=== PATIENT | female | born 1980 | race Caucasian/White ===

== ENCOUNTER 2017-01-12 06:28 | Emergency (ER) | payer OTHER ==
[2017-01-12] MEDS ORDERED: MORPHINE SULFATE 5 MG/ML PFS IVP ONE (06:44)
[2017-01-12] MEDS ORDERED: ONDANSETRON HCL IV 4 MG/2 ML VIAL IVP ONE (06:44)
[2017-01-12] MEDS ORDERED: 0.9 % SODIUM CHLORIDE 1000ML 1,000 ML IV SCH (06:45)
--- NOTE | 2017-01-12 06:48 | Emergency Department Record ---
History of Present Illness - General Chief Complaint: Abdominal Pain Stated Complaint: STOMACH/BACK PAIN Time Seen by Provider: 01/12/17 06:33 Source: Patient Mode of Arrival: Ambulatory Limitations: No limitations - History of Present Illness Initial Comments: 36 yo female presents to ED for evaluation of left sided flank pain symptoms that are radiating to the left groin region. Patient reports that her pain symptoms began early this morning, improved, and then returned with more force. Patient denies nausea, vomiting, or change in stools. Patient denies a history of similar symptoms previously, denies health problems at her baseline, and denies previous abdominal surgeries. MD Complaint: Flank pain Onset/Timin -: Minutes(s) Radiation: None Migration to: LLQ Severity: Moderate Consistency: Constant Improves With: Nothing Worsens With: Nothing Associated Symptoms: Nausea - Related Data LMP (females 10-50): 3 weeks ago Patient : No Home Medications Medication Instructions Recorded Confirmed Last Taken Esomeprazole Magnesium [Nexium 20 mg PO DAILY 01/12/17 01/12/17 Unknown 24Hr] Psyllium Husk/Aspartame [Metamucil 1,040 gm PO DAILY 01/12/17 01/12/17 Unknown Powder] Allergies Allergy/AdvReac Type Severity Reaction Status Date / Time oseltamivir [From Tamiflu] Allergy HIVES Verified 01/12/17 06:36 Penicillins Allergy HIVES Verified 01/12/17 06:36 Sulfa (Sulfonamide Allergy HIVES Verified 01/12/17 06:36 Antibiotics) Travel Screening - Travel/Exposure Within Last 30 Days Have you traveled within the last 30 days?: No - Travel/Exposure Within Last Year Have you traveled outside the [place] in the last year?: No - Additonal Travel Details Have you been exposed to anyone with a communicable illness?: No - Travel Symptoms Symptom Screening: None Review of Systems Constitutional: Denies: Chills, Fever, Malaise, Night sweats Eyes: Denies: Eye discharge, Eye pain ENT: Denies: Congestion, Ear pain, Epistaxis Respiratory: Denies: Cough, Dyspnea Cardiovascular: Denies: Chest pain, Dyspnea on exertion Endocrine: Denies: Fatigue, Heat or cold intolerance Gastrointestinal: Reports: Abdominal pain. Denies: Constipation, Nausea, Vomiting Genitourinary: Denies: Incontinence, Retention Musculoskeletal: Reports: Back pain. Denies: Arthralgia, Gout, Joint swelling Skin: Denies: Bruising, Change in color Neurological: Denies: Abnormal gait, Confusion, Headache, Seizure Psychiatric: Denies: Anxiety Hematological/Lymphatic: Denies: Anemia, Blood Clots Past Medical History - SOCIAL HISTORY Smoking Status: Never smoker Alcohol Use: None Drug Use: None - RESPIRATORY Hx Respiratory Disorders: No - CARDIOVASCULAR Hx Cardio Disorders: No - NEURO Hx Neuro Disorders: No - GI Hx GI Disorders: No - Hx Genitourinary Disorders: No - ENDOCRINE Hx Endocrine Disorders: No - MUSCULOSKELETAL Hx Musculoskeletal Disorders: No - PSYCH Hx Psych Problems: No - HEMATOLOGY/ONCOLOGY Hx Hematology/Oncology Disorders: No Family Medical History Any Significant Family History?: No Physical Exam - General General Appearance: Alert, Oriented x3, Cooperative, Moderate distress Limitations: No limitations - Head Head exam: Atraumatic, Normocephalic, Normal inspection Head exam detail: negative: Abrasion, Contusion, Meraz's sign, General tenderness, Hematoma, Laceration - Eye Eye exam: Normal appearance. negative: Conjunctival injection, Periorbital swelling, Periorbital tenderness, Scleral icterus - ENT Ear exam: negative: Auricular hematoma, Auricular trauma Nasal Exam: negative: Active bleeding, Discharge, Dried blood, Foreign body Mouth exam: negative: Drooling, Laceration, Muffled voice, Tongue elevation - Neck Neck exam: Normal inspection. negative: Meningismus, Tenderness - Respiratory Respiratory exam: Normal lung sounds bilaterally. negative: Rales, Respiratory distress, Rhonchi, Stridor - Cardiovascular Cardiovascular Exam: Regular rate, Normal rhythm, Normal heart sounds - GI/Abdominal GI/Abdominal exam: Soft. negative: Rebound, Rigid, Tenderness - Rectal Rectal exam: Deferred - exam: Deferred - Extremities Extremities exam: Normal inspection. negative: Pedal edema, Tenderness - Back Back exam: Reports: CVA tenderness (L). Denies: Paraspinal tenderness - Neurological Neurological exam: Alert, Normal gait, Oriented X3 - Psychiatric Psychiatric exam: Normal affect, Normal mood - Skin Skin exam: Normal color. negative: Abrasion Type of lesion: negative: abrasion Course Vital Signs 01/12/17 06:32 Temperature 97.9 F Pulse Rate 81 Respiratory 26 H Rate Blood Pressure 143/57 Pulse Ox 100 - Reevaluation(s) Reevaluation #1: 01/12/17 07:15 Labs reviewed and are grossly unremarkable for an acute process. UA pending. Reevaluation #2: 01/12/17 07:48 UA reviewed: 7-10 RBCs 3-5 WBCs 3-6 Epithelial cells 3+ Calcium oxylate crystals. CT Imaging results is pending at this time. patient reassessed and reports that her pain symptoms are greatly improved. Case was discussed with oncoming provider, will assume care and disposition at this time pending CT imaging results. Medical Decision Making - Lab Data Result diagrams: 01/12/17 06:35 01/12/17 06:35 Disposition Disposition: Discharge Clinical Impression: Kidney stone Disposition: Home, Self-Care Condition: (2) Stable Instructions: Abdominal Pain (ED) Additional Instructions: Return to ED if your symptoms worsen or if you have any concerns. Nitro and Motrin 600 mg as directed. Follow-up with your family doctor in 3-5 days as directed. Forms: Patient Portal Access Time of Disposition: 07:55 Quality - Quality Measures Quality Measures: N/A - Blood Pressure Screening Does Patient Have Any of the Following: No Blood Pressure Classification: Hypertensive Reading Systolic Measurement: 143 Diastolic Measurement: 57 Screening for High Blood Pressure: < First Hypertensive BP, F/U Documented > [ G8950] First Hypertensive Follow-up Interventions: Referral to alternative/primary care provider.
[2017-01-12 06:51] LABS: BASO % 0.4 % (0-6); EOS % 2.9 % (0-6); GRAN % 58.4 % (47-80); HEMATOCRIT 40.6 % (35.0-47.0); LYMPH % 29.1 % (16-45); MEAN CELL VOLUME 85.7 fl (81-97); MEAN CORPUSCULAR HEMOGLOBIN 29.5 pg (27-33); MEAN CORPUSCULAR HGB CONC 34.5 g/dl (32-36); MONO % 9.2 % (0-9); PLATELET COUNT 260 K/uL (130-400); RED BLOOD COUNT 4.74 M/uL (3.80-5.40); RED CELL DISTRIBUTION WIDTH 12.4 % (11.5-14.5); WHITE BLOOD COUNT W/O DIFF 6.9 K/uL (4.2-12.2)
[2017-01-12 07:04] LABS: BLOOD UREA NITROGEN 10 mg/dL (6-20); CREATININE 0.7 mg/dL (0.5-0.9); EST GLOMERULAR FILTRATION RATE > 60 mL/min
[2017-01-12 07:05] LABS: TOTAL PROTEIN 7.8 g/dL (6.6-8.7)
[2017-01-12 07:07] LABS: GLUCOSE,RANDOM 111 mg/dL (74-109)
[2017-01-12 07:09] LABS: ALB/GLOB RATIO 1.2 (1.1-1.8); ALBUMIN 4.3 g/dL (4.0-5.0); ALKALINE PHOSPHATASE 53 U/L (35-104); ALT/SGPT 7 U/L (<33); AST/SGOT 14 U/L (10.0-35.0); LIPASE 32 U/L (13-60)
[2017-01-12 07:15] LABS: URINE APPEARANCE CLEAR; URINE BILIRUBIN SMALL (NEGATIVE); URINE BLOOD MODERATE (NEGATIVE); URINE COLOR YELLOW; URINE GLUCOSE (UA) NEGATIVE (NEGATIVE); URINE KETONE TRACE (NEGATIVE); URINE LEUKOCYTE ESTERASE NEGATIVE (NEGATIVE); URINE NITRITE NEGATIVE (NEGATIVE); URINE PROTEIN TRACE (NEGATIVE); URINE UROBILINOGEN 0.2 E.U./dL (0.20 - 1.00)
[2017-01-12 07:24] LABS: HCG,QUALITATIVE URINE NEGATIVE (NEGATIVE)
[2017-01-12 07:26] LABS: URINE CALCIUM OXALATE CRYSTALS 3+ /hpf; URINE MUCUS LIGHT
[2017-01-12] MEDS ORDERED: KETOROLAC 60 MG/2 ML VIAL IVP STA (07:26)
[2017-01-12] MEDS ORDERED: KETOROLAC 30 MG/ML VIAL IVP ONE (07:27)
--- NOTE | 2017-01-12 08:13 | Emergency Department Record ---
History of Present Illness - General Chief Complaint: Abdominal Pain Stated Complaint: STOMACH/BACK PAIN Time Seen by Provider: 01/12/17 06:33 Source: Patient Mode of Arrival: Ambulatory Limitations: No limitations - History of Present Illness MD Complaint: Flank pain Onset/Timin -: Minutes(s) Radiation: None Migration to: LLQ Severity: Moderate Consistency: Constant Improves With: Nothing Worsens With: Nothing Associated Symptoms: Nausea - Related Data LMP (females 10-50): 3 weeks ago Patient : No Home Medications Medication Instructions Recorded Confirmed Last Taken Esomeprazole Magnesium [Nexium 20 mg PO DAILY 01/12/17 01/12/17 Unknown 24Hr] Psyllium Husk/Aspartame [Metamucil 1,040 gm PO DAILY 01/12/17 01/12/17 Unknown Powder] Previous Rx's Medication Instructions Recorded Hydrocodone/Acetaminophen [[place] 1 each PO Q8H #10 tablet 01/12/17 5-325 Tablet] Ibuprofen [Motrin 600Mg] 600 mg PO Q6H #20 tablet 01/12/17 Ondansetron [Zofran Odt] 4 mg PO Q8H #20 tab.rapdis 01/12/17 Allergies Allergy/AdvReac Type Severity Reaction Status Date / Time oseltamivir [From Tamiflu] Allergy HIVES Verified 01/12/17 06:36 Penicillins Allergy HIVES Verified 01/12/17 06:36 Sulfa (Sulfonamide Allergy HIVES Verified 01/12/17 06:36 Antibiotics) Travel Screening - Travel/Exposure Within Last 30 Days Have you traveled within the last 30 days?: No - Travel/Exposure Within Last Year Have you traveled outside the [place] in the last year?: No - Additonal Travel Details Have you been exposed to anyone with a communicable illness?: No - Travel Symptoms Symptom Screening: None Review of Systems Constitutional: Denies: Chills, Fever, Malaise, Night sweats Eyes: Denies: Eye discharge, Eye pain ENT: Denies: Congestion, Ear pain, Epistaxis Respiratory: Denies: Cough, Dyspnea Cardiovascular: Denies: Chest pain, Dyspnea on exertion Endocrine: Denies: Fatigue, Heat or cold intolerance Gastrointestinal: Reports: Abdominal pain. Denies: Constipation, Nausea, Vomiting Genitourinary: Denies: Incontinence, Retention Musculoskeletal: Reports: Back pain. Denies: Arthralgia, Gout, Joint swelling Skin: Denies: Bruising, Change in color Neurological: Denies: Abnormal gait, Confusion, Headache, Seizure Psychiatric: Denies: Anxiety Hematological/Lymphatic: Denies: Anemia, Blood Clots Past Medical History - SOCIAL HISTORY Smoking Status: Never smoker Alcohol Use: None Drug Use: None - RESPIRATORY Hx Respiratory Disorders: No - CARDIOVASCULAR Hx Cardio Disorders: No - NEURO Hx Neuro Disorders: No - GI Hx GI Disorders: No - Hx Genitourinary Disorders: No - ENDOCRINE Hx Endocrine Disorders: No - MUSCULOSKELETAL Hx Musculoskeletal Disorders: No - PSYCH Hx Psych Problems: No - HEMATOLOGY/ONCOLOGY Hx Hematology/Oncology Disorders: No Family Medical History Any Significant Family History?: No Physical Exam - General Limitations: No limitations Course Vital Signs 01/12/17 01/12/17 06:32 07:02 Temperature 97.9 F Pulse Rate 81 Pulse Rate [ 80 Pulse Ox Probe] Respiratory 26 H 20 Rate Blood Pressure 143/57 Blood Pressure 130/64 [Left Arm] Pulse Ox 100 98 - Reevaluation(s) Reevaluation #1: The patient was turned over at the bedside with Dr Clark The labs and UA were reviewed The CT scan is pending at this time The patient reports her pain is controlled at this time. 01/12/17 08:00 01/12/17 08:[address] scan was read as a distal likely passing renal stone with a size of 2- 3mm. There is a cystic structure also noted on the ovary. The patient was informed of the findings and the need to followup for a [facility] referral. Medical Decision Making - Lab Data Result diagrams: 01/12/17 06:35 01/12/17 06:35 Lab Results 01/12/17 01/12/17 01/12/17 Range/Units 06:35 06:35 07:18 WBC 6.9 (4.2-12.2) K/uL RBC 4.74 (3.80-5.40) M/uL Hgb 14.0 (11.6-16.0) gm/dl Hct 40.6 (35.0-47.0) % MCV 85.7 (81-97) fl MCH 29.5 (27-33) pg MCHC 34.5 (32-36) g/dl RDW 12.4 (11.5-14.5) % Plt Count 260 (130-400) K/uL MPV 10.0 (7.4-10.4) fl Gran % 58.4 (47-80) % Lymphocytes % 29.1 (16-45) % Monocytes % 9.2 H (0-9) % Eosinophils % 2.9 (0-6) % Basophils % 0.4 (0-6) % Sodium 142 (136-145) mmol/L Potassium 3.3 L (3.4-4.5) mmol/L Chloride 102 (98-107) mmol/L Carbon Dioxide 24.0 (22-29) mmol/L Anion Gap 16.0 (7-16) BUN 10 (6-20) mg/dL Creatinine 0.7 (0.5-0.9) mg/dL Estimated GFR > 60 mL/min Random Glucose 111 H (74-109) mg/dL Calcium 9.1 (8.6-10.0) mg/dL Total Bilirubin 0.80 (0.2-1.0) mg/dL AST 14 (10.0-35.0) U/L ALT 7 (<33) U/L Alkaline Phosphatase 53 (35-104) U/L Total Protein 7.8 (6.6-8.7) g/dL Albumin 4.3 (4.0-5.0) g/dL Globulin 3.5 (1.4-4.8) gm/dL Albumin/Globulin Ratio 1.2 (1.1-1.8) Lipase 32 (13-60) U/L Urine Color Yellow Urine Appearance Clear Urine pH 5.5 (5.0-8.0) Ur Specific [place] >= 1.030 (1.002-1.030) Urine Protein Trace H (NEGATIVE) Urine Glucose (UA) Negative (NEGATIVE) Urine Ketones Trace H (NEGATIVE) Urine Blood Moderate (NEGATIVE) Urine Nitrite Negative (NEGATIVE) Urine Bilirubin Small H (NEGATIVE) Urine Urobilinogen 0.2 (0.20 - 1.00) E.U./dL Ur Leukocyte Esterase Negative (NEGATIVE) Urine RBC 7 - 10 (NONE SEEN) Urine WBC 3 - 5 (0-2/hpf) Ur Epithelial Cells 3 - 6 (FEW) Calcium Oxalate Crystal 3+ /hpf Urine Mucus Light Urine HCG, Qual Negative (NEGATIVE) Disposition Disposition: Discharge Clinical Impression: Kidney stone Disposition: Home, Self-Care Condition: (2) Stable Instructions: Abdominal Pain (ED) Additional Instructions: Return to ED if your symptoms worsen or if you have any concerns. [place] and Motrin 600 mg as directed. Follow-up with your family doctor in 3-5 days as directed. Follow up the left ovarian cyst with your [facility] Prescriptions: Hydrocodone/Acetaminophen [[place] 5-325 Tablet] 1 each PO Q8H #10 tablet Ibuprofen [Motrin 600Mg] 600 mg PO Q6H #20 tablet Ondansetron [Zofran Odt] 4 mg PO Q8H #20 tab.rapdis Referrals: CARLTON CODY M.D. [MEDICAL DOCTOR] - [facility] [Provider Group] Forms: Patient Portal Access Time of Disposition: 08:41 Quality - Quality Measures Quality Measures: N/A - Blood Pressure Screening Does Patient Have Any of the Following: No Blood Pressure Classification: Pre-Hypertensive BP Reading Systolic Measurement: 139 Diastolic Measurement: 64 Screening for High Blood Pressure: < Pre-Hypertensive BP, F/U Documented > [ G8950] Pre-Hypertensive Follow-up Interventions: Referral to alternative/primary care provider.
--- NOTE | 2017-01-12 08:50 | CT SCAN REPORT ---
EXAM: CT OF THE ABDOMEN AND PELVIS WITHOUT CONTRAST HISTORY: LEFT LOWER QUADRANT PAIN. TECHNIQUE: Sequential axial images were obtained from the diaphragms through the ischiorectal fossa without intravenous or oral contrast administration. FINDINGS: The visualized lung bases appear normal. The liver, gallbladder, pancreas and spleen appear normal. The adrenal glands and kidneys appear normal. There is a small stone in the expected region of the distal left ureter likely authorization representative of a passing stone. No proximal obstruction is appreciated. There are small phleboliths within the pelvis. There is a 2.1 cm lipomatous lesion in the left adnexa likely authorization representative of a dermoid. This is new when compared to the prior examination dated 12/16/08. Gynecological consultation is recommended. The small and large bowel appears normal. The appendix is visualized and appears normal. The osseous structures are normal. IMPRESSION: 1. THERE IS A 3 MM PASSING CALCULUS AT THE LEFT URETERAL VESICULAR JUNCTION. THIS PRODUCES NO PROXIMAL HYDRONEPHROSIS. 2. 2.1 CM LIPOMATOUS LESION IN THE LEFT OVARY. THIS IS NEW WHEN COMPARED TO THE PRIOR EXAMINATION DATED 12/16/08. THIS LIKELY REPRESENTS A DERMOID, HOWEVER , GYNECOLOGICAL CONSULTATION IS RECOMMENDED ON AN OUTPATIENT BASIS. JOB NUMBER: [id number] [facility]
== END 2017-01-12 09:04 | disposition home or self-care (01) ==
LOC: ER 06:28
DX: N20.0 Calculus of kidney (principal); R11.0 Nausea
CPT/HCPCS: 99284 ×2; 96374; 96375; 83690; 85025; 80053; 81001; 81025; 74176; J1885; J2405; J2270; J7030